=== PATIENT | female | born 1945 | race Caucasian/White ===

== ENCOUNTER 2018-03-07 10:47 | Observation (INO) | payer OTHER, MEDICARE ==
[~2018-03-07] VITALS: Ht 157.5 cm; Wt 59.0 kg
[2018-03-07 11:40] LABS: BASOPHIL (%) 0.6 % (0-1); EOSINOPHIL (%) 1.2 % (0-5); EOSINOPHIL COUNT 0.1 K/uL (0-0.3); HEMATOCRIT 39.5 % (36.0-46.0); HEMOGLOBIN 14.2 G/DL (11.9-15.5); IMMATURE GRANULOCYTE (%) 1.8 % (0.0-0.7); LYMPHOCYTE (%) 20.8 % (15-42); MCH 33.6 PG (29.0-34.0); MCHC 35.9 G/DL (30.0-36.0); MCV 93.6 FL (83-99); MONOCYTE COUNT 0.5 K/uL (0-0.8); NEUTROPHIL (%) 66.6 % (45-76); NEUTROPHIL COUNT 3.3 K/uL (1.8-6.4); PLATELET COUNT 304 K/uL (156-360); RBC DIS.WIDTH-CV 13.2 % (11.8-14.6); RBC DIS.WIDTH-SD 45.1 % (39-53); RED BLOOD COUNT 4.22 M/uL (3.80-5.20)
[2018-03-07 11:49] LABS: ALBUMIN 4.5 g/dL (3.2-4.8)
[2018-03-07 11:50] LABS: CHLORIDE 104 mEq/L (99-109); POTASSIUM 4.2 mEq/L (3.7-5.4); SODIUM 138 mEq/L (136-147)
[2018-03-07 11:52] LABS: GLUCOSE 123 mg/dL (70-99); TOTAL PROTEIN 7.4 g/dL (6.4-8.3)
[2018-03-07 11:54] LABS: TOTAL BILIRUBIN 0.5 mg/dL (0.0-1.0)
[2018-03-07 11:55] LABS: ALKALINE PHOSPHATASE 64 IU/L (3-129)
[2018-03-07 11:56] LABS: CREATININE 0.7 mg/dL (0.6-1.3); GFR ESTIMATE (CALCULATED) > 59 mL/min/
[2018-03-07 11:57] LABS: AST (GOT) 16 IU/L (2-34); UREA NITROGEN (BUN) 20 mg/dL (9-23)
[2018-03-07 11:59] LABS: ALT (GPT) 16 IU/L (3-49)
[2018-03-07 12:01] LABS: TROP-I INTERPRETATION NEGATIVE; TROPONIN-I < 0.01 ng/mL (0.0-0.30)
[2018-03-07] MEDS ORDERED: PREDNISONE2.5 MG PO (14:09)
[2018-03-07] MEDS ORDERED: LOPID600 MG PO (14:10)
[2018-03-07] MEDS ORDERED: FOSAMAX70 MG PO (14:10)
[2018-03-07] MEDS ORDERED: LISINOPRIL5 MG PO (14:11)
[2018-03-07] MEDS ORDERED: VITAMIN D31000 UNI2 PO (14:12)
[2018-03-07] MEDS ORDERED: FISH OIL OMEGA1 EAC2 PO (14:12)
[2018-03-07] MEDS ORDERED: MIRALAX17 GM PO (14:13)
[2018-03-07] MEDS ORDERED: ASCORBIC ACID250 MG PO (14:13)
[2018-03-07 17:43] VITALS: BP 171/77
[2018-03-07 18:15] LABS: TROP-I INTERPRETATION NEGATIVE; TROPONIN-I < 0.01 ng/mL (0.0-0.30)
[2018-03-07 20:00] VITALS: BP 142/62
[2018-03-07 23:46] LABS: TROP-I INTERPRETATION NEGATIVE; TROPONIN-I 0.02 ng/mL (0.0-0.30)
[2018-03-08] VITALS: BP 158/70
[2018-03-08 04:49] VITALS: BP 117/59
[2018-03-08 06:17] LABS: BASOPHIL (%) 0.6 % (0-1); EOSINOPHIL (%) 1.7 % (0-5); EOSINOPHIL COUNT 0.1 K/uL (0-0.3); IMMATURE GRANULOCYTE (%) 1.2 % (0.0-0.7); LYMPHOCYTE (%) 25.4 % (15-42); LYMPHOCYTE COUNT 0.9 K/uL (1.0-2.8); MCH 32.1 PG (29.0-34.0); MCHC 33.4 G/DL (30.0-36.0); MCV 96.2 FL (83-99); MONOCYTE (%) 9.5 % (3-12); MONOCYTE COUNT 0.3 K/uL (0-0.8); NEUTROPHIL (%) 61.6 % (45-76); NEUTROPHIL COUNT 2.1 K/uL (1.8-6.4); PLATELET COUNT 263 K/uL (156-360); RBC DIS.WIDTH-CV 13.2 % (11.8-14.6); RBC DIS.WIDTH-SD 47.2 % (39-53); RED BLOOD COUNT 3.64 M/uL (3.80-5.20); WHITE BLOOD COUNT 3.5 K/uL (4.1-10.2)
[2018-03-08 06:25] LABS: HEMOGLOBIN 11.7 G/DL (11.9-15.5)
[2018-03-08 06:32] LABS: TROP-I INTERPRETATION NEGATIVE; TROPONIN-I < 0.01 ng/mL (0.0-0.30)
[2018-03-08 06:36] LABS: CHLORIDE 108 MEQ/L (99-109); CREATININE 0.5 MG/DL (0.6-1.3); GFR ESTIMATE (CALCULATED) > 59 mL/min/; POTASSIUM 3.8 MEQ/L (3.7-5.4); SODIUM 141 MEQ/L (136-147); UREA NITROGEN (BUN) 17 mg/dL (9-23)
[2018-03-08 06:40] LABS: GLUCOSE 83 mg/dL (70-99)
[2018-03-08 07:29] VITALS: BP 141/62
[2018-03-08 13:31] VITALS: BP 146/67
== END 2018-03-08 14:51 | disposition home or self-care (01) ==
LOC: EME 10:47 → ENRESERV 13:53 → EDOF 13:55 → ENRESERV 15:44 → 4SOUTH 16:13
PROVIDERS: Emergency Medicine; Hospitalist
DX: R07.89 Other chest pain (principal); R33.9 Retention of urine, unspecified; R42 Dizziness and giddiness; R06.02 Shortness of breath; I10 Essential (primary) hypertension; Z87.440 Personal history of urinary (tract) infections; E27.40 Unspecified adrenocortical insufficiency; Z79.52 Long term (current) use of systemic steroids; H81.09 Meniere's disease, unspecified ear; Z88.0 Allergy status to penicillin; Z98.890 Other specified postprocedural states; Z90.79 Acquired absence of other genital organ(s); Z90.722 Acquired absence of ovaries, bilateral; Z82.49 Family history of ischemic heart disease and other diseases of the circulatory system
CPT/HCPCS: 70450; 71045; 71275; 80048; 80053; 81003; 84484; 85025; 85379; 93005; 99281; 99285; G0378; J2060; J7030; J7120; J7512